=== PATIENT | male | born 1970 | race Caucasian/White ===

== ENCOUNTER 2017-01-26 09:21 | Emergency (ER) | payer BC, MEDICAID ==
[2017-01-26 09:47] VITALS: BP 128/79
--- NOTE | 2017-01-26 10:11 | UC ---
Throat Pain/Nasal Jay HPI - HPI Summary HPI Summary: Nasal congestion and pressure for about 5 days. No fever or bleeding. No unilateral pain. He has no chronic sinus or lung conditions. - History of Current Complaint Chief Complaint: UCRespiratory Stated Complaint: COLD SYMPTOMS Time Seen by Provider: 01/26/17 09:27 Hx Obtained From: Patient Onset/Duration: Gradual Onset, Lasting Days Severity: Moderate Cough: Nonproductive Associated Signs & Symptoms: Positive: Negative, Sinus Discomfort. Negative: Fever, Vomiting, Rash - Allergies/Home Medications Allergies/Adverse Reactions: Allergies Allergy/AdvReac Type Severity Reaction Status Date / Time No Known Allergies Allergy Verified 01/26/17 09:37 Home Medications: Home Medications Cholecalciferol [Vitamin D] 1,000 unit PO WEEKLY 01/26/17 [History Confirmed ] Levetiracetam 1,000 mg PO DAILY 01/26/17 [History Confirmed 01/26/17] [id number]-[id number]-[id number] [Mucinex Sinus-Max Pressur 10-650-400 mg/20Ml] 1 liq PO ONCE PRN 01/26/17 [History Confirmed 01/26/17] PMH/Surg Hx/FS Hx/Imm Hx Previously Healthy: No - prior fractures. No sinus disease. - Surgical History Surgical History: Yes Surgery Procedure, Year, and Place: LEFT WRIST ORIF with metal - Family History Known Family History: Positive: Other - positive FMH of URI - Social History Occupation: Employed Full-time Alcohol Use: None Substance Use Type: None Smoking Status (MU): Smoker, Current Status Unknown Type: Smokeless Tobacco Amount Used/How Often: ican per week Review of Systems ENT: Nasal Discharge, Sinus Congestion Respiratory: Cough All Other Systems Reviewed And Are Negative: Yes Physical Exam Triage Information Reviewed: Yes Appearance: Well-Appearing, No Pain Distress, Well-Nourished Vital Signs: Initial Vital Signs Temp 97.8 F 01/26/17 09:27 Pulse 90 01/26/17 09:27 Resp 20 01/26/17 09:27 BP 128/79 01/26/17 09:27 Pulse Ox 97 01/26/17 09:27 Vital Signs Reviewed: Yes Eyes: Positive: Conjunctiva Clear ENT: Positive: Pharyngeal erythema, Nasal congestion, TM bulging, Uvula midline. Negative: Nasal drainage, TM dull, TM red, Tonsillar swelling, Tonsillar exudate, Trismus, Muffled voice, Hoarse voice, Dental tenderness, Sinus tenderness Neck exam: Normal Neck: Positive: Supple, Nontender, No Lymphadenopathy Respiratory: Positive: Chest non-tender, Lungs clear, Normal breath sounds, No respiratory distress, No accessory muscle use. Negative: Respiratory distress, Decreased breath sounds, Accessory muscle use, Crackles, Rhonchi, Stridor, Wheezing Cardiovascular: Positive: RRR, No Murmur, Pulses Normal, Brisk Capillary Refill Abdomen Description: Positive: Nontender, No Organomegaly, Soft. Negative: Distended, Guarding Musculoskeletal: Positive: Strength Intact, ROM Intact, No Edema Neurological: Positive: Alert, Muscle Tone Normal. Negative: Fatigued Skin: Positive: rashes Throat Pain/Nasal Course/Dx - Differential Dx/Diagnosis Provider Diagnoses: viral uri. viral head cold. Discharge - Discharge Plan Condition: Good Disposition: HOME Prescriptions: Amoxicillin PO (*) [Amoxicillin 500 MG CAP*] 500 mg PO TID #30 cap Patient Education Materials: Upper Respiratory Infection (ED) Referrals: Milly Wade MD [Primary Care Provider] - If Needed
== END 2017-01-26 10:12 | disposition home or self-care (01) ==
LOC: UCCORT 09:21
DX: J06.9 Acute upper respiratory infection, unspecified (principal); Z87.81 Personal history of (healed) traumatic fracture; F17.220 Nicotine dependence, chewing tobacco, uncomplicated
CPT/HCPCS: 99212; G0463

== ENCOUNTER 2018-09-05 19:03 | Emergency (ER) | payer BC ==
--- OUTSIDE RECORDS SUMMARY | 2018-09-05 19:15 | XMS REPORT | Continuity of Care Document ---
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 Onset: 09/21/2015 Irritability and anger Dayana Torres M.D. Onset: 09/21/2015 Closed injury of head Dayana Torres M.D. Onset: 09/21/2015 Weight decreased Saqib Avery M.D. 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 Onset: skull fracture Abnormal involuntary movement Saqib Avery M.D. Onset: 08/08/2017 Chronic fatigue syndrome Saqib Avery M.D. Onset: 08/08/2017 Hypersomnia Saqib Avery M.D. Onset: 08/08/2017 Complex partial epileptic seizure Saqib Avery M.D. Onset: 08/08/2017 Social History Type Date Description Comments Sex Unknown Marital Status Occupation [employer] ETOH Use Rarely consumes Glass of wine and alcohol beer once a week. Tobacco Use Start: Unknown Patient has never smoked Recreational Drug Use Former Drug User Former Marijuana Smoking Status Reviewed: 08/27/18 Patient has never smoked Exercise Type/Frequency Exercises regularly Allergies, Adverse Reactions, Alerts Description No Known Drug Allergies Medications Active Medications SIG Qnty Indications Ordering Provider Date Lamotrigine take two tablets 120tabs Carson Benjamin MD 11/07/2017 25mg by mouth twice a Tablets day Lamotrigine take one tablet 30tabs Carson Benjamin MD 12/10/2016 200mg by mouth every Tablets day Prograf 4 by mouth twice Unknown 1mg Capsules a day Losartan Potassium 1 by mouth every Unknown day 100mg Tablets Simvastatin 1 by mouth every Unknown 40mg day Tablets Vitamin D Once a week Unknown Capsules Prednisone 30MG for 2 weeks Unknown 5mg Tablets then back to 1 by mouth every day History Medications Propranolol HCL ER take one 30caps R25.1 Saqib Avery, 11/07/2017 - 60mg capsule every M.D. 05/13/2018 Caps ER 24HR other day Levetiracetam 1 by mouth at 30tabs Saqib Avery, 09/19/2017 - 500mg night M.D. 11/06/2017 Tablets Lamotrigine take 4 tabs po 120tabs Saqib Avery, 09/19/2017 - 25mg qam and 2 tabs M.D. 11/07/2017 Tablets po qpm Lamotrigine take 2 at night 60tabs Saqib Avery, 08/08/2017 - 25mg with the M.D. 09/19/2017 Tablets 200mg.. Lamotrigine take two 60tabs Saqib Avery, 12/10/2016 - 25mg tablets by M.D. 08/08/2017 Tablets mouth every day with 200mg as directed Lamotrigine 1 by mouth qd 30tabs G40.019 Dayana Torres, 03/26/2016 - 100mg in addition to M.D. 03/26/2016 Tablets 50 mg tab Lamotrigine take one tablet 30tabs Dayana Torres, 03/26/2016 - 150mg by mouth every M.D. 12/10/2016 Tablets day Lamotrigine Take 2-6 180tabs G40.019 Dayana Torres, 09/21/2015 - 25mg Tablets By M.D. 03/26/2016 Tablets Mouth Once Daily as Directed Prednisone 1 tab po daily Unknown - 10mg Tablets 04/03/2016 Tacrolimus twice a day Unknown - 3 Capsules 08/07/2017 Ergocalciferol 1 tab by mouth Unknown - every week 07/31/2017 [id number] Capsules Levetiracetam take one tablet 60tabs Saqib Avery, - 500mg by mouth twice M.D. 09/19/2017 Tablets a day Vital Signs Date Vital Result Comment 08/27/2018 4:00pm Height 71 inches 5'11" Weight 206.00 lb Heart Rate 92 /min BP Systolic 120 mmHg BP Diastolic 86 mmHg BMI (Body Mass Index) 28.7 kg/m2 05/08/2018 3:39pm Height 71 inches 5'11" Weight 225.00 lb Heart Rate 88 /min BP Systolic 132 mmHg BP Diastolic 88 mmHg BMI (Body Mass Index) 31.4 kg/m2 01/08/2018 3:55pm Height 71 inches 5'11" Weight 204.00 lb Heart Rate 82 /min BP Systolic Sitting 126 mmHg BP Diastolic Sitting 82 mmHg Respiratory Rate 16 /min BMI (Body Mass Index) 28.4 kg/m2 11/07/2017 8:14am Height 71 inches 5'11" Weight 186.00 lb Heart Rate 78 /min BP Systolic Sitting 130 mmHg BP Diastolic Sitting 88 mmHg Respiratory Rate 16 /min BMI (Body Mass Index) 25.9 kg/m2 09/19/2017 8:26am Height 71 inches 5'11" Weight 208.00 lb Heart Rate 80 /min BP Systolic 110 mmHg BP Diastolic 88 mmHg BMI (Body Mass Index) 29.0 kg/m2 08/08/2017 9:36am Height 71 inches 5'11" Weight 205.00 lb Heart Rate 80 /min BP Systolic Sitting 128 mmHg BP Diastolic Sitting 80 mmHg Respiratory Rate 16 /min BMI (Body Mass Index) 28.6 kg/m2 10/03/2016 8:53am Height 71 inches 5'11" Weight 229.00 lb Heart Rate 88 /min BP Systolic 110 mmHg BP Diastolic 80 mmHg Respiratory Rate 24 /min No difficulties breathing Pain Level 2 BMI (Body Mass Index) 31.9 kg/m2 04/04/2016 3:53pm Height 71 inches 5'11" Weight 240.00 lb Heart Rate 88 /min BP Systolic Sitting 120 mmHg BP Diastolic Sitting 82 mmHg Respiratory Rate 14 /min BMI (Body Mass Index) 33.5 kg/m2 09/21/2015 10:04am Height 71 inches 5'11" Weight 235.00 lb Heart Rate 76 /min BP Systolic Sitting 116 mmHg BP Diastolic Sitting 78 mmHg Respiratory Rate 14 /min BMI (Body Mass Index) 32.8 kg/m2 Procedures Date Code Description Status 10/19/2015 22136 EEG Recording Awake & Asleep Completed Encounters Type Date Location Provider Dx Diagnosis Office Visit 05/08/2018 [place] Sid Avery, G40.209 Local- rel symptc 3:45p [facility] Neuro Intensivist Physician M.D. epi w cmplx prt seiz,not ntrct,w/o stat epi R25.1 Tremor, unspecified Office Visit 01/08/2018 Emiliano Avery, G40.209 Local-rel 4:00p Neurologic M.Mason symptc epi w [facility] Neuro Intensivist Physician cmplx prt seiz,not ntrct,w/o stat epi R25.1 Tremor, unspecified Office Visit 11/07/2017 Emiliano Avery, G40.209 Local-rel 8:15a Neurologic M.Mason symptc epi w [facility] Intensivist Physician cmplx prt seiz,not ntrct,w/o stat epi R25.1 Tremor, unspecified R63.4 Abnormal weight loss Office Visit 09/19/2017 Emiliano Avery, G40.209 Local-rel 8:15a Neurologic M.DCorina symptc epi w [facility] Neuro Intensivist Physician cmplx prt seiz,not ntrct,w/o stat epi R25.1 Tremor, unspecified R45.4 Irritability and anger S06.9x9S Unsp intracranial injury w Loc of unsp duration, sequela Office Visit 08/08/2017 Emiliano Avery, G40.209 Local-rel 9:30a Neurologic M.D. symptc epi w [facility] Neuro Intensivist Physician cmplx prt seiz,not ntrct,w/o stat epi G47.10 Hypersomnia, unspecified R53.82 Chronic fatigue, unspecified R25.1 Tremor, unspecified Office Visit 10/03/2016 8:45a [place] [facility] Dayana Hooks G40.209 Local[facility] prt seiz,not ntrct,w/o stat epi Office Visit 04/04/2016 3:45p [place] Sid Hooks G40.209 Local-rel [facility] w [facility] prt seiz,not ntrct,w/o stat epi R45.4 Irritability and anger S06.9x9S Unsp intracranial injury w Loc of unsp duration, sequela Office Visit 09/21/2015 10:00a [place] Sid Hooks G40.209 Local-rel [facility] prt seiz,not ntrct,w/o stat epi R45.4 Irritability and anger S06.9x9S Unsp intracranial injury w Loc of unsp duration, sequela Plan of Treatment Future Appointment(s):12/04/2018 3:30 pm - Saqib Avery M.D. at [facility]08/27/2018 - Saqib Avery M.D.G40.209 Localization-related (focal) (partial) symptomatic epilepsyFollow up:3 zipgezR15.1 Tremor, unspecified
[2018-09-05 20:50] VITALS: BP 120/71
[2018-09-05] MEDS ORDERED: Cyclobenzaprine TAB* 10 MG PO ONE (20:58)
[2018-09-05] MEDS ORDERED: methylPREDNISolone 125 MG* 2 ML VIAL IM ONE (20:59)
--- NOTE | 2018-09-05 21:08 | UC ---
Hip/Pelvis Pain - HPI Summary HPI Summary: LEFT HIP PAIN. 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 PT THINKS HE TWISTED WRONG. PAIN IS GETTING WORSE. NO NUMBESS OR TINGLING. FEELS LIKE LEG "GIVES OUT". he states ther is no back pain, just pain inside the hip, pointing to his groin , the pain then radiates down the leg in various places depending on position. - History Of Current Complaint Chief Complaint: UCLowerExtremity Stated Complaint: LEFT HIP INJURY Time Seen by Provider: 09/05/18 20:14 Hx Obtained From: Patient Onset/Duration: Sudden Onset, Lasting Days Timing: Constant Severity Initially: Severe Severity Currently: Severe Pain Intensity: 10 Character Of Pain: Aching, Spasmodic, Stiffness Aggravating Factor(s): Movement, Weight Bearing Alleviating Factor(s): Rest Associated Signs And Symptoms: Positive: Weakness - in certain positions - Allergies/Home Medications Allergies/Adverse Reactions: Allergies Allergy/AdvReac Type Severity Reaction Status Date / Time No Known Allergies Allergy Verified 09/05/18 20:39 Home Medications: Home Medications predniSONE TAB* [Deltasone 10 MG TAB*] 30 mg PO DAILY 09/05/18 [History Confirmed 09/05/18] PMH/Surg Hx/FS Hx/Imm Hx Previously Healthy: No - kidney disease - Surgical History Surgical History: Yes Surgery Procedure, Year, and Place: LEFT WRIST ORIF with metal. TBI, - Family History Known Family History: Positive: Other - positive FMH of URI - Social History Alcohol Use: None Substance Use Type: None Smoking Status (MU): Former Smoker Type: Smokeless Tobacco Amount Used/How Often: ican per week Review of Systems All Other Systems Reviewed And Are Negative: Yes Musculoskeletal: Positive: Arthralgia, Decreased ROM, Myalgia Is Patient Immunocompromised?: No Physical Exam Triage Information Reviewed: Yes Appearance: Well-Appearing, Well-Nourished, Pain Distress Vital Signs: Initial Vital Signs Temp 98.3 F 09/05/18 20:42 Pulse 102 09/05/18 20:42 Resp 17 09/05/18 20:42 BP 120/71 09/05/18 20:42 Pulse Ox 96 09/05/18 20:42 Vital Signs Reviewed: Yes Eye Exam: Normal ENT Exam: Normal Dental Exam: Normal Neck exam: Normal Respiratory Exam: Normal Cardiovascular Exam: Normal Musculoskeletal: Positive: No Edema, Strength Limited @ - states it is hard to put weight evenly on legs, but is able to move side to side in a lunge when asked., ROM Limited @ - ROM is normal Neurological Exam: Normal Psychological Exam: Normal Skin Exam: Normal Hip Injury Course/Dx - Course Course Of Treatment: hx obtained, exam performed ,meds reviewed, patients story continues to change as the exam goes on. His ROM is normal and he is able to perform physical movements, most pain seems to be centered in the left groin and adductors flexeril dispensed and solumedrol administered for inflammation - Differential Dx/Diagnosis Differential Diagnosis/HQI/PQRI: Sciatica, Sprain, Strain Provider Diagnosis: Strain of left inguinal muscle Discharge - Sign-Out/Discharge Documenting (check all that apply): Patient Departure All imaging exams completed and their final reports reviewed: No Studies - Discharge Plan Condition: Stable Disposition: HOME Prescriptions: Cyclobenzaprine TAB* [Flexeril 10 MG TAB*] 10 mg PO BID PRN #6 tab PRN Reason: Spasms Patient Education Materials: Groin Strain (ED) Forms: *Work Release Referrals: Milly Wade MD [Primary Care Provider] - Luis Felipe Ruiz MD [Medical Doctor] - Additional Instructions: 1. take the flexeril when you get home 2. I have prescribed a few more for the next few days 3. THe solumedrol will work as an anti inflammatory to help with the initial inflammation of the injury 4. You can take Tylenol as needed. \\ 5. Warm water soaks with epsom salts 6. I have given a note in case you need it for work on friday 7. I have also given a referral to Dr Ruiz as this was a injury from work. follow up with him or Dr Zach jones as needed. - Billing Disposition and Condition Condition: STABLE Disposition: Home - Attestation Statements Provider Attestation: Per institutional requirements, I have reviewed the chart, however, I was not consulted specifically or made aware of this patient by the midlevel provider. I did not personally evaluate, interact with , or disposition this patient.
== END 2018-09-05 21:24 | disposition home or self-care (01) ==
LOC: UCCORT 19:03
DX: S39.011A Strain of muscle, fascia and tendon of abdomen, initial encounter (principal); X50.0XXA Overexertion from strenuous movement or load, initial encounter; Y93.89 Activity, other specified; Y92.89 Other specified places as the place of occurrence of the external cause; Y99.0 Civilian activity done for income or pay; Z87.891 Personal history of nicotine dependence
CPT/HCPCS: 96372; 99212; A9270-GY; G0463; J2930